=== PATIENT | male | born 1960 | race Caucasian/White ===

== ENCOUNTER 2019-10-29 08:52 | Emergency (ER) | payer BC ==
[2019-10-29 09:07] VITALS: TEMP 98.2; BMI 27.3
--- NOTE | 2019-10-29 09:16 | PDOC ---
History of Present Illness - General Chief Complaint: Pain Stated Complaint: RLQ PAIN SLIGHT NAUSEA Time Seen by Provider: 10/29/19 09:01 - History of Present Illness Initial Comments: 10/29/19 09:12 59 year old man with a history of HLD and HTN who presents with RLQ abdominal pain that started at 0400 this AM. He reports that his pain is 4/10 and dull like but persistent, non radiating to the back or the groin. He admits to some nausea but no vomiting, no diarrhea, no constipation. He has no other complaints. He reports a prior history of kidney stones but states that this pain is not as severe as his prior stones. ROS GENERAL/CONSTITUTIONAL: No fever or chills. No weakness. HEAD, EYES, EARS, NOSE AND THROAT: No change in vision. No ear pain or discharge. No sore throat. CARDIOVASCULAR: No chest pain or shortness of breath RESPIRATORY: No cough, wheezing, or hemoptysis. GASTROINTESTINAL: +nausea, No vomiting, diarrhea or constipation. GENITOURINARY: No dysuria, frequency, or change in urination. MUSCULOSKELETAL: No joint or muscle swelling or pain. No neck or back pain. SKIN: No rash NEUROLOGIC: No headache, vertigo, loss of consciousness, or change in strength/sensation. ENDOCRINE: No increased thirst. No abnormal weight change HEMATOLOGIC/LYMPHATIC: No anemia, easy bleeding, or history of blood clots. ALLERGIC/IMMUNOLOGIC: No hives or skin allergy. PE GENERAL: Awake, alert, and fully oriented, in no acute distress HEAD: No signs of trauma, normocephalic, atraumatic EYES: EOMI, sclera anicteric, conjunctiva clear ENT: oropharynx clear without exudates. Moist mucosa NECK: Normal ROM, supple LUNGS: No distress, speaks full sentences, clear to auscultation bilaterally HEART: Regular rate and rhythm, normal S1 and S2, no murmurs, rubs or gallops, peripheral pulses normal and equal bilaterally. ABDOMEN: Soft, + mild RLQ ttp, No guarding, no rebound. No masses EXTREMITIES : Normal inspection, Normal range of motion, no edema. No clubbing or cyanosis. NEUROLOGICAL: Cranial nerves II through XII grossly intact. Normal speech, no focal sensorimotor deficits SKIN: Warm, Dry, normal turgor, no rashes or lesions noted GENITAL: vertical lie of the testes, no inguinal hernias palpated, no testicular ttp Assessment and Plan 59 year old man with a history of HLD and HTN who presents with RLQ abdominal pain that started at 0400 this AM. He reports that his pain is 4/10 and dull like but persistent, non radiating to the back or the groin. Consider nephrolithiasis vs uti/infected stone vs appendicitis. - cbc, cmp, caogs, ts, ua labs wnl UA with 1+ RBC CT : 44mm R UVJ stone D/C with urology Josiane Gary, PGY3 Emergency Medicine Past History - Medical History Allergies/Adverse Reactions: Allergies Allergy/AdvReac Type Severity Reaction Status Date / Time No Known Allergies Allergy Unverified 10/29/19 08:54 Home Medications: Ambulatory Orders Atorvastatin Ca [Lipitor] 10 mg PO HS 10/29/19 Escitalopram Oxalate [Lexapro -] 20 mg PO DAILY 10/29/19 Olmesartan Medoxomil [Benicar] 20 mg PO DAILY 10/29/19 Tamsulosin HCl [Flomax] 0.4 mg PO DAILY 5 Days #5 capsule 10/29/19 COPD: No HTN: Yes Hypercholesterolemia: Yes Psychiatric Problems: Yes (anxiety depression) - Psycho-Social/Smoking History Smoking History: Never smoked Information on smoking cessation initiated: No - Substance Abuse Hx (Audit-C & DAST Scrn) How often the patient has a drink containing alcohol: Monthly or less Score: In Men: 4 or > Positive; In Women: 3 or > Positive: 1 Screen Result (Pos requires Nsg. Audit-10AR): Negative In the last yr the pt used illegal drug/Rx for NonMed reason: No Score: Yes response is considered Positive: 0 Screen Result (Positive result requires Nsg. DAST-10): Negative *Physical Exam - Vital Signs Last Vital Signs Temp Pulse Resp BP Pulse Ox 98.2 F 62 16 173/93 H 99 10/29/19 08:53 10/29/19 08:53 10/29/19 08:53 10/29/19 08:53 10/29/19 08:53 ED Treatment Course - LABORATORY CBC & Chemistry Diagram: 10/29/19 09:35 10/29/19 09:35 Discharge - Discharge Information Problems reviewed: Yes Clinical Impression/Diagnosis: Kidney stone on right side Condition: Stable - Additional Discharge Information Prescriptions: Tamsulosin HCl [Flomax] 0.4 mg PO DAILY 5 Days #5 capsule - Follow up/Referral Referrals: Jose L Mahmood MD [Staff Physician] - - Patient Discharge Instructions Patient Printed Discharge Instructions: Kidney Stones -- Adult Additional Instructions: You were seen in the ER for complaints of R lower abdominal pain. Your CT showed a 4mm R kidney stone. You should be able to pass this stone. You have Flomax prescribed to you to assist in passing the stone. Take tylenol and motrin for pain control You have a referral to Urology and should follow up within 1 week. Return to the ER if you develop worsening abdominal pain, fever, nausea, vomiting or any other concerning symptoms. - Post Discharge Activity
[2019-10-29 10:07] LABS: ACTIVATED PTT 25.6 SECONDS (25.2-36.5); ALBUMIN 4.4 g/dl (3.4-5.0); BILIRUBIN,TOTAL 1.2 mg/dl (0.2-1); CREATININE 1.4 mg/dl (0.55-1.3); POTASSIUM 4.1 mmol/L (3.5-5.1); TOT PROT 6.8 g/dl (6.4-8.2)
--- NOTE | 2019-10-29 10:07 | PDOC ---
Attending Attestation - Resident Resident Name: Josiane Gary - ED Attending Attestation I have performed the following: I have examined & evaluated the patient, The case was reviewed & discussed with the resident, I agree w/resident's findings & plan, Exceptions are as noted - HPI HPI: 10/29/19 10:01 59 yo M h/o HTN and kidney stone many years ago p/w acute onset RLQ pain began ~4AM today a/w with some nausea but no vomiting. Reports pain as constant and dull which is different from when he had stones. At that time states pain was sharp and much more severe. Denies hematuria or dysuria. Denies testicular pain. Denies changes in bowel habits. - Physicial Exam PE: 10/29/19 10:04 General: non-toxic appearing Abdomen: soft, nd, no rebound, no guarding, no masses Back: no CVA tenderness - Medical Decision Making 10/29/19 10:05 59 yo M with RLQ pain, abdomen non-tender, possible early kidney stone vs. very early appy. Testicular exam performed by resident unremarkable so doubt torsion and patient very comfortable appearing. Also possible hernia although no masses or hernias appreciated on exam so much lower suspicion. Plan: -labs -urine -CT a/p -pain control as needed -reassess This clinical encounter is taking place during a federal and state health care emergency attributable to the novel [place] Virus pandemic. The [employer] of the Department of Health and Human Services has declared, pursuant to the Public Health Service Act 319F-3 (42 U.S[place]C. 247d-6d), that a covered persons activities related to medical countermeasures against COVID-19 will be immune from liability under Federal and State law. 10/29/19 11:37 CT with UVJ stone and very mild hydro. Urine without signs concerning for infection. Pain improved. Will d/c with rx for flomax and recommend NSAID as needed for pain and urology f/u. Return precautions given. Discharge - Discharge Information Problems reviewed: Yes Clinical Impression/Diagnosis: Kidney stone on right side Condition: Stable - Follow up/Referral - Patient Discharge Instructions - Post Discharge Activity
[2019-10-29 10:09] LABS: MEAN PLT VOLUME 10.6 fl (7.5-11.1); MONO % 4.8 % (3.8-10.2)
[2019-10-29 10:11] LABS: INR 1.08 (0.82-1.09); PROTHROMBIN TIME (PATIENT) 12.1 SEC (10.2-13.0)
[2019-10-29 10:18] LABS: BASO % 0.1 % (0-2.0); EOS % 0.3 % (0-4.5); HEMATOCRIT 46.4 % (35.4-49); LYMPH % 12.4 % (8-40); MCH 32.1 pg (25.7-33.7); MCHC 34.6 g/dl (32.0-35.9); MEAN CELL VOLUME 92.8 fl (80-96); NEUT % 82.4 % (42.8-82.8); PLATELET COUNT 214 K/MM3 (134-434); RDW 12.5 % (11.9-15.9); WHITE BLOOD COUNT 15.3 K/mm3 (4.0-10.8)
[2019-10-29] MEDS ORDERED: ACETAMINOPHEN 325 MG TABLET (FP) PO ONE (10:22)
[2019-10-29] MEDS ORDERED: ACETAMINOPHEN 325 MG TABLET (FP) ONE (10:25)
[2019-10-29 10:51] LABS: EPITHELIAL CELLS RARE /hpf
[2019-10-29 11:13] VITALS: BP 130/71; PULSE 52
== END 2019-10-29 11:46 | disposition home or self-care (01) ==
LOC: FER 08:52
DX: N20.0 Calculus of kidney (principal)
CPT/HCPCS: 36415; 74176-TC; 80053; 81003; 81015; 85025; 85610; 85730; 86850; 86900; 86901; 87086; 99284-25